=== PATIENT | male | born 1965 | race African-American/Black ===

== ENCOUNTER 2024-02-20 17:13 | Emergency (ER) | payer SELFPAY ==
[~2024-02-20] VITALS: Ht 180.3 cm; Wt 112.0 kg
[2024-02-20 17:40] VITALS: BP 134/80; PULSE 89; RESP 20; TEMP 98.4; O2SAT 100
[2024-02-20] MEDS: SODIUM CHLORIDE 0.9% 1,000 ML IV ONE (18:05)
[2024-02-20] MEDS ORDERED: METF-416 MT (18:08)
[2024-02-20] MEDS ORDERED: GLIM4TAB36 MT (18:08)
== END 2024-02-20 18:14 | disposition left against medical advice (07) ==
LOC: ER 17:13
DX: E11.65 Type 2 diabetes mellitus with hyperglycemia (principal); E78.00 Pure hypercholesterolemia, unspecified
CPT/HCPCS: 99283; 82962; J7030